=== PATIENT | male | born 1985 | race Caucasian/White ===

== ENCOUNTER 2018-03-27 06:12 | Day surgery (SDC) | payer OTHER ==
[~2018-03-27 06:12] MED LIST: ASACOL HD800 MG PO
[2018-03-27] MEDS ORDERED: NEURONTIN300 MG PO (09:31)
[2018-03-27] MEDS ORDERED: ZOFRAN ODT4 MG PO (09:31)
[2018-03-27] MEDS ORDERED: PERCOCET 5-3251 EACH PO (09:31)
[2018-03-27] MEDS ORDERED: MIRALAX17 GM PO (09:31)
== END 2018-03-27 11:15 | disposition home or self-care (01) ==
LOC: CIR.AMB 06:12 → AMB-ENDOS 07:45 → CIR.AMB 11:15
DX: K40.90 Unilateral inguinal hernia, without obstruction or gangrene, not specified as recurrent (principal); D17.1 Benign lipomatous neoplasm of skin and subcutaneous tissue of trunk